=== PATIENT | female | born 1995 | race Caucasian/White ===

== ENCOUNTER 2017-07-20 09:38 | Emergency (ER) | payer OTHER ==
[~2017-07-20 09:38] MED LIST: Iopamidol 370 76% 100 ML VIAL ONE
[2017-07-20] MEDS ORDERED: Ondansetron HCl/PF 4 MG/2 ML Vial ONE (10:30)
[2017-07-20] MEDS ORDERED: Fentanyl 100 MCG/2 ML VIAL ONE (10:30)
[2017-07-20 10:35] LABS: Bilirubin Negative (Negative); Blood, Urine Large (Negative); Clarity Clear (Clear); Glucose, Urine (Dipstick) Negative (Negative); Leukocyte Negative (Negative); Nitrite Negative (Negative); Protein, Urine (Dipstick) Negative (Neg-Trace); Specific Gravity, Urine 1.015 (1.005-1.030); Urobilinogen 0.2 mg/dL (0.2-1.0); pH, Urine 7.5 (5.0-9.0)
[2017-07-20 10:37] LABS: Pregnancy Test - Urine (BHCG) Negative (Negative); Pregu Control Background? CLEAR/WHITE (CLR/WHITE); Pregu Control Bar Appear? YES (CONTROL BAR)
[2017-07-20 10:38] LABS: Specific Gravity 1.015 (1.002-1.036)
[2017-07-20 10:44] LABS: #Eosinphils 0.2 thou/uL (0.0-0.7); #Lymphocytes 2.1 thou/uL (1.20-3.40); #Monocytes 0.5 thou/uL (0.11-0.59); #Neutrophils 3.3 thou/uL (1.40-6.50); %Basophils 0.8 % (0.0-1.0); %Eosinophils 3.4 % (0.0-10.0); %Neutrophils 53.9 % (42.0-75.0); Hemoglobin 14.4 g/dL (12.0-16.0); Mean Corpuscular HGB CONC 34.3 g/dL (32.0-36.0); Mean Corpuscular Volume 84.6 fl (81.0-99.0); Mean Platelet Volume 6.6 fL (7.4-10.4); Platelet Count 235 thou/uL (130-400); Red Blood Cell (RBC) Count 4.95 mill/uL (4.20-5.40); White Blood Cell (WBC) Count 6.1 thou/uL (4.8-10.8)
[2017-07-20 10:45] LABS: Bacteria/HPF None Seen HPF (None Seen); Squamous Epithelial 0-3 HPF (0-3); WBC/HPF 0-3 HPF (0-3)
[2017-07-20 10:54] LABS: ALT (SGPT) 27 U/L (8-55); AST (SGOT) 24 U/L (5-34); Albumin 4.3 g/dL (3.5-5.0); Alkaline Phosphatase 75 U/L (40-150); Anion Gap 11 mmol/L (10-20); BUN (Urea Nitrogen) 13 mg/dL (7.0-18.7); Bilirubin, Total 0.6 mg/dL (0.2-1.2); Calc. Creatinine Clearance 0 mL/min (70-130); Calcium 9.6 mg/dL (7.8-10.44); Carbon Dioxide 23 mmol/L (22-29); Chloride 109 mmol/L (98-107); Estimated GFR-MDRD Greater than 90; Globulin 3.2 g/dL (2.4-3.5); Glucose 93 mg/dL (70-105); Lipase 13 U/L (8-78); Potassium 3.9 mmol/L (3.5-5.1); Protein, Total 7.5 g/dL (6.0-8.3); Sodium 139 mmol/L (136-145)
--- NOTE | 2017-07-20 11:03 | CT ---
CT ABDOMEN AND PELVIS WITH CONTRAST: Date: 07/20/17 HISTORY: Abdominal pain. FINDINGS: Lung bases are clear. No pericardial effusion. Liver is unremarkable. Mild distention of the gallbladder without pericholecystic inflammation. The s pleen is unremarkable, as well as the pancreas. Adrenal glands are normal. The aortoiliac contour is nonaneurysmal. Multiple follicles left ovary. Small follicles right ovary. Trace free fluid in the pelvis. Moderate stool burden within the sigmoid colon near the rectosigmoid junction. There are mildly prominent ileocolic lymph nodes. Appendix is felt to be visualized and appears normal. No hydronephrosis. Skeleton is unremarkable. IMPRESSION: 1. No acute inflammatory process of abdomen or pelvis. 2. Small volume free fluid in the pelvis, likely physiologic. 3. Appendix is felt to be visualized and appears normal. POS: [facility]
--- NOTE | 2017-07-20 12:07 | ULT ---
PELVIC ULTRASOUND: Date: 07/20/17 HISTORY: Right lower quadrant pain. COMPARISON: None. TECHNIQUE: Transabdominal imaging of the pelvis is performed. Ovaries are interrogated with Monterroso scale, color fl ow, Doppler imaging, and spectral waveform analysis. FINDINGS: Uterus is identified, measuring 6.8 x 3.8 x 4.0 cm. There are no myometrial masses. Limited evaluatio n of the endometrium on the transabdominal imaging. Left ovary has a normal echotexture, measuring 2.3 x 2.6 x 1.8 cm. Right ovary has a normal echotextu re, measuring 1.6 x 2.3 x 1.2 cm. No sonographic evidence of significant free fluid. Ovarian Doppler: There is flow to the left and right ovaries. IMPRESSION: Grossly, no abnormality on ultrasound. Both ovaries have a normal echotexture. Vascular flow to bot h ovaries. The results of the study were discussed with Dr. Silverman on 07/20/2017 at 12:50 p.m. CODE CR POS: [facility]
== END 2017-07-20 12:35 | disposition home or self-care (01) ==
LOC: SCSER 09:38
DX: R10.2 Pelvic and perineal pain (principal); E03.9 Hypothyroidism, unspecified; F41.9 Anxiety disorder, unspecified; Z79.899 Other long term (current) drug therapy
CPT/HCPCS: 74177; 76856; 80053; 81003; 81015; 81025; 83690; 85025; 96374; 96375; 96376; J2405; J3010